=== PATIENT | male | born 2000 | race Two or more races ===

== ENCOUNTER 2021-11-18 04:59 | Emergency (ER) | payer OTHER ==
[~2021-11-18] VITALS: Ht 182.9 cm; Wt 72.6 kg
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
--- NOTE | 2021-11-18 06:38 | NUR ---
PATIENT AT CT.
--- NOTE | 2021-11-18 06:50 | NUR ---
BACK FROM CT.
--- NOTE | 2021-11-18 08:49 | NUR ---
Patient discharged to home in stable condition. Written and verbal after care instructions given. Patient verbalizes understanding of instruction.
[2021-11-18 08:51] VITALS: BP 130/85
== END 2021-11-18 08:52 ==
LOC: ER 05:02
DX: T14.8XXA Other injury of unspecified body region, initial encounter (principal); F10.129 Alcohol abuse with intoxication, unspecified; V49.9XXA Car occupant (driver) (passenger) injured in unspecified traffic accident, initial encounter; Y93.89 Activity, other specified; Y92.481 Parking lot as the place of occurrence of the external cause; Y99.8 Other external cause status; Y90.9 Presence of alcohol in blood, level not specified
CPT/HCPCS: 70450-TC; 72125-TC